=== PATIENT | female | born 1985 | race Caucasian/White ===

== ENCOUNTER 2020-02-19 14:07 | Emergency (ER) | payer MEDICAID ==
[~2020-02-19] VITALS: Ht 170.2 cm; Wt 72.6 kg
[2020-02-19 14:15] VITALS: BP 128/73
[2020-02-19] MEDS ORDERED: Pantoprazole Inj IVP ONE (14:15)
--- NOTE | 2020-02-19 14:15 | NUR ---
ED Nurse Note: Patient from home and brought in by RA [id number] due to upper abd simons with N/V started after her dental operation this morning. Per patient she started shaking, feel nauseated after her tooth was extracted. Patient presented anxious, diaphoretic, temp 100.0, HR 133, othe VSS at this time. Patient AAO x4, skin is hot to touch.
--- NOTE | 2020-02-19 14:21 | Emergency Room Report ---
History of Present Illness General Chief Complaint: Vomiting Source: Patient, EMS Present Illness HPI Patient is a 34-year-old female past medical history of gastritis, endometriosis and uterine fibroids who presents to the ER complaining of nausea and vomiting. Patient states that she went for dental procedure where they used local anesthesia and while she was driving home she started feeling shaky. Patient complains of nausea and none bloody nonbilious vomitus. She complains of epigastric pain. She denies any fever. She denies having any symptoms prior to the procedure. Patient denies any chest pain or shortness of breath. She denies any dysuria or hematuria. She denies any diarrhea. She denies any recent travel or sick contacts. 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 Patient History Last Menstrual Period: 01/27/20 Now: No Reviewed Nursing Documentation: PMH: Agreed; PSxH: Agreed Nursing Documentation-PMH Past Medical History: No History, Except For Review of Systems All Other Systems: negative except mentioned in HPI Physical Exam Vital Signs Date Time Temp Pulse Resp B/P (MAP) Pulse Ox O2 Delivery O2 Flow Rate FiO2 02/19/20 14:02 98.6 133 17 128/73 (91) 97 Room Air Sp02 EP Interpretation: reviewed, normal General Appearance: no apparent distress, alert, GCS 15, non-toxic Head: normocephalic, atraumatic Eyes: bilateral eye normal inspection, bilateral eye PERRL ENT: hearing grossly normal, normal pharynx, no angioedema, normal voice, other - Tooth #18 dental carry Neck: full range of motion, no meningismus Respiratory: chest non-tender, normal breath sounds, no respiratory distress, no accessory muscle use Cardiovascular #1: regular rate, rhythm, normal capillary refill Gastrointestinal: soft, other - epigastric ttp, no guarding or rebound Rectal: deferred Genitourinary: no CVA tenderness Musculoskeletal: normal range of motion, no calf tenderness, no lower extremity edema 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 Patient given IV fluids, Protonix and Tylenol. She states that she feels much improved. Ultrasound demonstrates no acute intra-abdominal pathology. Her heart rate is improved to 110. Patient is still being given IV fluids. Patient's labs demonstrate no elevated white blood cell count. Electrolytes demonstrate no significant acute abnormalities. UA is negative. Will treat for dental infection with Augmentin. Patient's lactate is normal. Patient's heart rate is around 105 prior to discharge. She states a temperature of 100.3. I have offered her Motrin. Patient is well-appearing and nontoxic. After discussing risks and benefits of further diagnostics, treatment plans, as well as indications for and risks of admission, the patient is agreeable to being discharged home. I have explained that their evaluation and treatment in the emergency department today is an important step towards them achieving better health but that their evaluation today is not intended to replace further evaluation and treatment by a physician in their local clinic. I have explained that while the current findings suggest no immediate life threatening emergency they will require further evaluation and treatment by a physician of their choice in their area. They understand that it will be neces ryann for them to review the final reports of their ED visit with their clinic physician. We have reviewed indications for return to the Emergency Department. I have explained that additional time may need to pass and/or additional testing as an outpatient may be necessary before a definitive diagnosis can be made. They tell me they are willing to follow up as instructed within the timeframe I recommend. They appear to understand what we discussed. Additionally they understand that if they are unable to be seen by an outpatient physician they are welcome, and in fact should, return to the Emergency Department for a repeat evaluation. The patient is stable at time of discharge. Laboratory Tests Test 02/19/20 14:25 White Blood Count 10.7 K/UL (4.8-10.8) Red Blood Count 4.87 M/UL (4.20-5.40) Hemoglobin 15.1 G/DL (12.0-16.0) Hematocrit 43.2 % (37.0-47.0) Mean Corpuscular Volume 89 FL (80-99) Mean Corpuscular Hemoglobin 30.9 PG (27.0-31.0) Mean Corpuscular Hemoglobin Concent 34.9 G/DL (32.0-36.0) Red Cell Distribution Width 11.1 % (11.6-14.8) L Platelet Count 251 K/UL (150-450) Mean Platelet Volume 5.6 FL (6.5-10.1) L Neutrophils (%) (Auto) % (45.0-75.0) Lymphocytes (%) (Auto) % (20.0-45.0) Monocytes (%) (Auto) % (1.0-10.0) Eosinophils (%) (Auto) % (0.0-3.0) Basophils (%) (Auto) % (0.0-2.0) Differential Total Cells Counted 100 Neutrophils % (Manual) 81 % (45-75) H Lymphocytes % (Manual) 8 % (20-45) L Monocytes % (Manual) 2 % (1-10) Eosinophils % (Manual) 0 % (0-3) Basophils % (Manual) 0 % (0-2) Band Neutrophils 9 % (0-8) H Platelet Estimate Adequate Platelet Morphology Normal Red Blood Cell Morphology Normal Prothrombin Time 10.7 SEC (9.30-11.50) Prothrombin Time INR 1.0 (0.9-1.1) Activated Partial Thromboplast Time 24 SEC (23-33) Urine Color Pale yellow Urine Appearance Clear Urine pH 5 (4.5-8.0) Urine Specific [place] 1.010 (1.005-1.035) Urine Protein Negative (NEGATIVE) Urine Glucose (UA) Negative (NEGATIVE) Urine Ketones Negative (NEGATIVE) Urine Blood Negative (NEGATIVE) Urine Nitrite Negative (NEGATIVE) Urine Bilirubin Negative (NEGATIVE) Urine Urobilinogen Normal MG/DL (0.0-1.0) Urine Leukocyte Esterase 1+ (NEGATIVE) H Urine RBC 0-2 /HPF (0 - 2) Urine WBC 2-4 /HPF (0 - 2) Urine Squamous Epithelial Cells Few /LPF (NONE/OCC) Urine Bacteria Few /HPF (NONE) Urine HCG, Qualitative Negative (NEGATIVE) Sodium Level 137 MMOL/L (136-145) Potassium Level 3.5 MMOL/L (3.5-5.1) Chloride Level 102 MMOL/L (98-107) Carbon Dioxide Level 28 MMOL/L (21-32) Anion Gap 7 mmol/L (5-15) Blood Urea Nitrogen 5 mg/dL (7-18) L Creatinine 0.9 MG/DL (0.55-1.30) Estimated Glomerular Filtration Rate > 60 mL/min (>60) Glucose Level 105 MG/DL (74-106) Lactic Acid Level 1.60 mmol/L (0.4-2.0) Calcium Level 9.4 MG/DL (8.5-10.1) Magnesium Level 1.7 MG/DL (1.8-2.4) L Total Bilirubin 0.8 MG/DL (0.2-1.0) Aspartate Amino Transferase (AST) 15 U/L (15-37) Alanine Aminotransferase (ALT) 18 U/L (12-78) Alkaline Phosphatase 68 U/L (46-116) Total Protein 7.2 G/DL (6.4-8.2) Albumin 4.5 G/DL (3.4-5.0) Globulin 2.7 g/dL Albumin/Globulin Ratio 1.7 (1.0-2.7) Lipase 252 U/L (73-393) Urine Opiates Screen Negative (NEGATIVE) Urine Barbiturates Screen Negative (NEGATIVE) Phencyclidine (PCP) Screen Negative (NEGATIVE) Urine Amphetamines Screen Negative (NEGATIVE) Urine Benzodiazepines Screen Negative (NEGATIVE) Urine Cocaine Screen Negative (NEGATIVE) Urine Marijuana (THC) Screen Positive (NEGATIVE) H Microbiology Date/Time Source Procedure Growth Status 02/19/20 14:25 Nasopharynx SARS-CoV-2 RdRp Gene Assay - Final Complete 02/19/20 14:25 Nasal Nares - Final Complete 02/19/20 14:25 Nasal Nares - Final Complete EKG Diagnostic Results Troponin ordered: No - EKG ordered for sepsis EKG Time: 14:26 EP Interpretation: Laura Packer MD Rate: tachycardiac - 127 bpm Rhythm: other - Sinus tachycardia ST Segments: no acute changes ASA given to the pt in ED: No Rhythm Strip Diag. Results Rhythm Strip Time: 14:21 EP Interpretation: yes - Laura Packer MD Rate: 134 bpm Rhythm: no PVC's, no ectopy, other - Sinus tachycardia Chest X-Ray Diagnostic Results Chest X-Ray Diagnostic Results : Chest X-Ray Ordered: Yes # of Views/Limited/Complete: 1 View Indication: Other - Tachycardia EP Interpretation: Yes Interpretation: no consolidation, no effusion, no pneumothorax, no acute cardiopulmonary disease Impression: No acute disease Electronically Signed by: Laura Packer MD Last Vital Signs Date Time Temp Pulse Resp B/P (MAP) Pulse Ox O2 Delivery O2 Flow Rate FiO2 02/19/20 14:02 98.6 133 17 128/73 (91) 97 Room Air Disposition: HOME, SELF-CARE Condition: Stable Scripts Ondansetron* (ZOFRAN*) 4 Mg Tablet 4 MG ORAL Q6H PRN for Nausea & Vomiting, #14 TAB Prov: Laura Packer M.D. 02/19/20 Amoxicillin/Potassium Clav 875-125* (AUGMENTIN 875-125 TABLET*) 1 Each Tablet 1 TAB ORAL TWICE A DAY, #20 TAB Prov: Laura Packer M.D. 02/19/20 Additional Instructions: The patient was provided with discharge instructions, notified to follow-up with a primary care doctor and or specialist in the next 24-48 hours, and to return to the ED if they have worsening of their symptoms. Please note that this report is being documented using [employer] technology. This can lead to erroneous entry secondary to incorrect interpretation by the dictating instrument. Laura Packer M.D. Feb 19, 2020 14:21
--- NOTE | 2020-02-19 14:25 | NUR ---
ED Nurse Note: IV line was established on right AC 20 ga, blood and urine specimens were collected sent to lab
[2020-02-19] MEDS ORDERED: Acetaminophen 500mg (ES) tab ORAL ONE (14:30)
--- NOTE | 2020-02-19 14:32 | NUR ---
ED Nurse Note: Contacted u/s tech @ [phone].
--- NOTE | 2020-02-19 14:40 | NUR ---
ED Nurse Note: X ray at bed side
[2020-02-19 14:41] LABS: HEMATOCRIT 43.2 % (37.0-47.0); HEMOGLOBIN 15.1 G/DL (12.0-16.0); MEAN CORPUSCULAR VOLUME 89 FL (80-99); PLATELET COUNT 251 K/UL (150-450); RED BLOOD COUNT 4.87 M/UL (4.20-5.40); RED CELL DISTRIBUTION WIDTH 11.1 % (11.6-14.8); WHITE BLOOD COUNT 10.7 K/UL (4.8-10.8)
[2020-02-19 14:44] LABS: APPEARANCE,URINE CLEAR; BILIRUBIN, URINE NEGATIVE (NEGATIVE); COLOR,URINE PALE YELLOW; GLUCOSE, URINE (UA) NEGATIVE (NEGATIVE); KETONES,URINE NEGATIVE (NEGATIVE); LEUKOCYTE ESTERASE ,URINE 1+ (NEGATIVE); NITRITE,URINE NEGATIVE (NEGATIVE); PH,URINE 5 (4.5-8.0); PROTEIN,URINE NEGATIVE (NEGATIVE); UROBILINOGEN,URINE NORMAL MG/DL (0.0-1.0)
--- NOTE | 2020-02-19 14:49 | NUR ---
ED Nurse Note: US by bed side
--- NOTE | 2020-02-19 15:00 | Diagnostic Imaging Report ---
Indication: Chest pain Technique: One view of the chest Comparison: none Findings: Lungs and pleural spaces are clear. Heart size is normal. Impression: No acute process
[2020-02-19 15:03] LABS: ANION GAP 7 mmol/L (5-15); BLOOD UREA NITROGEN 5 mg/dL (7-18); CALCIUM 9.4 MG/DL (8.5-10.1); CARBON DIOXIDE 28 MMOL/L (21-32); CHLORIDE 102 MMOL/L (98-107); CREATININE 0.9 MG/DL (0.55-1.30); POTASSIUM 3.5 MMOL/L (3.5-5.1); SODIUM 137 MMOL/L (136-145)
[2020-02-19 15:07] LABS: ALANINE AMINOTRANSFERASE 18 U/L (12-78); ALBUMIN 4.5 G/DL (3.4-5.0); ALBUMIN/GLOBULIN RATIO 1.7 (1.0-2.7); ALKALINE PHOSPHATASE 68 U/L (46-116); ASPARTATE AMINO TRANSFERASE 15 U/L (15-37); BILIRUBIN,TOTAL 0.8 MG/DL (0.2-1.0)
[2020-02-19] MEDS ORDERED: ZOFRAN4 M3 ORAL (15:23)
[2020-02-19] MEDS ORDERED: AUGMENTIN 875-1 EAC1 ORAL (15:23)
[2020-02-19] MEDS ORDERED: Augmentin 875mg Tab ORAL ONE (15:30)
[2020-02-19 15:53] VITALS: BP 128/73
--- NOTE | 2020-02-19 15:54 | NUR ---
ER DISCHARGE NOTE: Patient is cleared to be discharged per ERMD, pt is aox4, on room air, with stable vital signs. pt was given dc and prescription instructions, pt was able to verbalize understanding, pt id band and iv site removed without complications. pt is able to ambulate with steady gait. pt took all belongings.
--- NOTE | 2020-02-19 17:27 | Diagnostic Imaging Report ---
Indication: Abdominal pain Technique: Banegas-scale and duplex images of the upper abdomen were obtained Comparison: none Findings: Gallbladder is unremarkable, without stones, wall thickening, nor pericholecystic fluid. Sonographic Urena's sign is negative. Common bile duct measures 2 mm in diameter. No intrahepatic biliary ductal dilatation. Liver demonstrates normal echogenicity, no focal abnormality. Portal vein and hepatic veins are patent. Pancreas is unremarkable. Spleen is unremarkable. Left kidney measures 11.9 cm in length. Right kidney measures 10.6 cm length. Both kidneys demonstrate normal echogenicity. There is no hydronephrosis. No focal abnormality . Non-aneurysmal abdominal aorta . Impression: Negative
--- NOTE | 2020-02-22 17:06 | Cardiology Report ---
APPROVED REPORT EKG Measurement Heart [id number] <Conclusion> Sinus tachycardia Nonspecific ST and T wave abnormality Abnormal ECG
== END 2020-02-19 15:54 | disposition home or self-care (01) ==
LOC: EDBD 14:07 → EMR 14:20
DX: R11.2 Nausea with vomiting, unspecified (principal); R10.13 Epigastric pain; K02.9 Dental caries, unspecified; R00.0 Tachycardia, unspecified; R07.9 Chest pain, unspecified
CPT/HCPCS: 36415; 71045; 76700; 80053; 80307; 81003; 81025; 83605; 83690; 83735; 85007; 85025; 85610; 85730; 86710; 87040; 93005; 96361; 96374; 96375; J2405; J7030; S0164; U0002; Z7502; 99284